=== PATIENT | female | born 1950 | race Two or more races ===

== ENCOUNTER 2024-06-12 22:54 | Inpatient (IN) | payer OTHER, MEDICAID ==
[~2024-06-12] VITALS: Ht 160 cm; Wt 105.1 kg
[2024-06-13] VITALS (12 sets, daily range): BP systolic 81–136; BP diastolic 42–70; PULSE 72–111; RESP 14–22; TEMP 98–99.3; O2SAT 85–100
[2024-06-13] MEDS ORDERED: ONDANSETRON HCL 4 MG/2 ML VIAL IV PRN (03:30)
[2024-06-13] MEDS ORDERED: NITROGLYCERIN 0.4 MG SL TAB SL PRN (03:30)
[2024-06-13] MEDS ORDERED: MORPHINE SULFATE INJ 2 MG/ml SYRG IV PRN ×2 (03:30)
[2024-06-13] MEDS ORDERED: ATOR20TA PO (04:00)
[2024-06-13] MEDS ORDERED: SEMA4INJ SC (04:00)
[2024-06-13] MEDS ORDERED: PANT40TA2 PO (04:00)
[2024-06-13] MEDS ORDERED: FOLI-119 PO (04:00)
[2024-06-13] MEDS ORDERED: ASPI-543 PO (04:00)
[2024-06-13] MEDS ORDERED: AMIT25TA20 PO (04:00)
[2024-06-13] MEDS ORDERED: LEVO-177 GT (04:00)
[2024-06-13] MEDS ORDERED: CITA10TA6 PO (04:00)
[2024-06-13] MEDS ORDERED: MAGN400C4 PO (04:00)
[2024-06-13 04:18] LABS: Basophils # (auto) 0 10 ^3/uL (0-0.2); Basophils % (auto) 0.4 % (0.0-2.0); Eosinophils # (auto) 0.2 10 ^3/uL (0-0.8); Lymphocytes # (auto) 0.7 10 ^3/uL (0.4-5.4); Mean Corpuscular Volume 103.7 fL (80.0-100.0); Monocytes # (auto) 0.5 10 ^3/uL (0-1.3)
[2024-06-13 04:20] LABS: Eosinophils % (auto) 1.8 % (0.0-7.0); Hematocrit 36.2 % (36.0-46.0); Hemoglobin 12.4 g/dL (12.2-16.2); Lymphocytes % (auto) 6.6 % (10.0-50.0); Mean Corpuscular Hemoglobin 35.4 pg (28.0-32.0); Mean Corpuscular Hgb Conc. 34.2 g/dL (32.0-36.0); Monocytes % (auto) 4.8 % (0.0-12.0); Neutrophils % (auto) 86.4 % (37.0-80.0); Platelet Count (auto) 226 10^3/uL (140-450); Red Blood Cells 3.49 10^6/uL (4.0-5.20); Red Cell Distribution Width 16.8 % (11.8-14.3); White Blood Cell 10.4 10^3/uL (4.4-10.8)
[2024-06-13 04:30] LABS: Alanine Aminotransferase 15 U/L (7-40); Albumin 3.1 g/dL (3.2-4.8); Alkaline Phosphatase 82 U/L (46-116); Anion Gap 4 (5-15); Aspartate Aminotransferase 16 U/L (13-40); BUN/Creatinine Ratio 12.8 (10.0-20.0); Blood Urea Nitrogen 14 mg/dL (9-23); Calcium 8.2 mg/dL (8.7-10.4); Carbon Dioxide 28 mmol/L (20-30); Chloride 105 mmol/L (98-107); Glucose 105 mg/dL (74-106); Sodium 137 mmol/L (136-145)
[2024-06-13 04:31] LABS: Bilirubin, Total 0.8 mg/dL (0.2-1.0); Total Protein 5.3 g/dL (5.7-8.2)
[2024-06-13] MEDS: SODIUM CHLORIDE 0.9% 1,000 ML IV SCH (04:50)
[2024-06-13] MEDS: metroNIDAZOLE 500MG/100ML 100 ML IV SCH (05:38)
[2024-06-13] MEDS: cefTRIAXone 1GM/50ML D5W 50 ML IV SCH (11:48)
[2024-06-13] MEDS: MAGNESIUM SULFATE 1GM/100ML 100 ML IV ONE (11:49)
[2024-06-13] MEDS ORDERED: PRED20TA2 PO (13:22)
[2024-06-13] MEDS ORDERED: IVAB1.7T PO (13:22)
[2024-06-13] MEDS ORDERED: PILO7.5T3 PO (13:22)
[2024-06-13] MEDS ORDERED: MONT-8 OR (13:22)
[2024-06-13 13:46] LABS: Urine Bacteria None Seen /hpf (None Seen)
[2024-06-13 13:57] LABS: Urine Blood Negative /uL (Negative); Urine Clarity Turbid (Clear); Urine Color Yellow (Yellow); Urine Mucus FEW (None Seen); Urine Protein, UAD 1+ (Negative); Urine Specific Gravity 1.028 (1.001-1.035); Urine Urobilinogen 2 mg/dL (Negative); Urine WBC 48 /hpf (0 - 5); Urine pH 5.5 (5.0-9.0)
[2024-06-13] MEDS ORDERED: BUDE1AER4 INH (14:15)
[2024-06-13] MEDS ORDERED: DEXTROSE (50%) 50ML SYRG IV PRN (18:45)
[2024-06-13] MEDS: MORPHINE SULFATE INJ 2 MG/ml SYRG IV PRN (20:02)
[2024-06-13 20:43] LABS: Folate (Folic Acid) 17.88 ng/mL (>5.38)
[2024-06-13] MEDS: ENOXAPARIN SOD 30 MG/0.3 ML SYRINGE SC SCH (21:38)
[2024-06-13] MEDS: FLORASTOR (S. BOULARDII) 250 MG CAP PO SCH (21:40)
[2024-06-13] MEDS: ATORVASTATIN 20 MG TAB PO SCH (21:40)
[2024-06-13 23:42] LABS: COVID19 ANTIGEN SOFIA FIA NEGATIVE (NEGATIVE)
[2024-06-13] MEDS: ACCU-CHEK COMFORT CURVE STRIP VI SCH (23:49)
[2024-06-13] MEDS: InsuLIN REG 1unit/0.01ml Soln (100units/ml) SC SCH (23:50)
[2024-06-14] VITALS (17 sets, daily range): BP systolic 77–148; BP diastolic 38–87; PULSE 97–116; RESP 16–22; TEMP 97.5–98.9; O2SAT 85–99
[2024-06-14] MEDS: LEVOTHYROXINE SODIUM 25 MCG TAB PO SCH (05:57)
[2024-06-14] MEDS ORDERED: LEVOTHYROXINE SODIUM 88 MCG TAB PO SCH (06:00)
[2024-06-14 06:17] LABS: Basophils # (auto) 0 10 ^3/uL (0-0.2); Basophils % (auto) 0.6 % (0.0-2.0); Eosinophils # (auto) 0.2 10 ^3/uL (0-0.8); Eosinophils % (auto) 2.7 % (0.0-7.0); Hematocrit 34.3 % (36.0-46.0); Hemoglobin 11.4 g/dL (12.2-16.2); Lymphocytes # (auto) 0.6 10 ^3/uL (0.4-5.4); Lymphocytes % (auto) 7.9 % (10.0-50.0); Mean Corpuscular Hemoglobin 34.9 pg (28.0-32.0); Mean Corpuscular Hgb Conc. 33.4 g/dL (32.0-36.0); Mean Corpuscular Volume 104.7 fL (80.0-100.0); Monocytes # (auto) 0.3 10 ^3/uL (0-1.3); Monocytes % (auto) 3.9 % (0.0-12.0); Neutrophils # (auto) 6.6 10 ^3/uL (1.6-8.6); Neutrophils % (auto) 84.9 % (37.0-80.0); Platelet Count (auto) 220 10^3/uL (140-450); Red Blood Cells 3.27 10^6/uL (4.0-5.20); Red Cell Distribution Width 17.1 % (11.8-14.3); White Blood Cell 7.8 10^3/uL (4.4-10.8)
[2024-06-14 06:22] LABS: Chloride 107 mmol/L (98-107); Potassium 3.9 mmol/L (3.5-5.1); Sodium 139 mmol/L (136-145)
[2024-06-14 06:23] LABS: Anion Gap 2 (5-15); Calcium 8.2 mg/dL (8.7-10.4); Carbon Dioxide 30 mmol/L (20-30)
[2024-06-14 06:28] LABS: BUN/Creatinine Ratio 15.9 (10.0-20.0); Blood Urea Nitrogen 14 mg/dL (9-23); Glucose 90 mg/dL (74-106)
[2024-06-14 06:29] LABS: Magnesium 1.9 mg/dL (1.6-2.6)
[2024-06-14 09:14] LABS: Free T3 2.37 pg/mL (2.3-4.2); Free T4 (Free Thyroxine) 1.28 ng/dL (0.89-1.76)
[2024-06-14] MEDS: D5W 5% 1,000 ML IV SCH (09:23)
[2024-06-14] MEDS: LEVALBUTEROL HCL 1.25 MG/3 ML NEB NEB SCH (12:18)
[2024-06-14] MEDS: CITALOPRAM HYDROBR 20 MG TAB PO ONE (15:44)
[2024-06-14] MEDS: DOXYCYCLINE 100MG/250ML 250 ML IV ONE (15:45)
[2024-06-14] MEDS: IPRATROPIUM BROM 0.5 MG/2.5ML INH SOL NEB PRN (19:12)
[2024-06-14] MEDS: DOXYCYCLINE 100 MG TAB/CAP PO SCH (21:50)
[2024-06-15] VITALS (13 sets, daily range): BP systolic 123–142; BP diastolic 60–79; PULSE 58–111; RESP 16–22; TEMP 37; O2SAT 90–100
[2024-06-15 04:45] LABS: Basophils # (auto) 0 10 ^3/uL (0-0.2); Lymphocytes # (auto) 0.6 10 ^3/uL (0.4-5.4); Mean Corpuscular Hemoglobin 34.7 pg (28.0-32.0); Mean Corpuscular Hgb Conc. 33.7 g/dL (32.0-36.0); Mean Corpuscular Volume 102.9 fL (80.0-100.0); Monocytes # (auto) 0.4 10 ^3/uL (0-1.3)
[2024-06-15 04:47] LABS: Basophils % (auto) 0.4 % (0.0-2.0); Eosinophils # (auto) 0.2 10 ^3/uL (0-0.8); Eosinophils % (auto) 3.4 % (0.0-7.0); Hematocrit 32.7 % (36.0-46.0); Lymphocytes % (auto) 8.5 % (10.0-50.0); Neutrophils # (auto) 5.3 10 ^3/uL (1.6-8.6); Neutrophils % (auto) 81.7 % (37.0-80.0); Nucleated Red Blood Cells % 0.3 %; Platelet Count (auto) 215 10^3/uL (140-450); Red Blood Cells 3.18 10^6/uL (4.0-5.20); Red Cell Distribution Width 16.7 % (11.8-14.3); White Blood Cell 6.5 10^3/uL (4.4-10.8)
[2024-06-15 04:56] LABS: Chloride 104 mmol/L (98-107); Potassium 3.4 mmol/L (3.5-5.1); Sodium 139 mmol/L (136-145)
[2024-06-15 04:57] LABS: Anion Gap 6 (5-15); Calcium 8.2 mg/dL (8.7-10.4); Carbon Dioxide 29 mmol/L (20-30)
[2024-06-15 05:02] LABS: BUN/Creatinine Ratio 9.4 (10.0-20.0); Blood Urea Nitrogen 8 mg/dL (9-23); Glucose 107 mg/dL (74-106)
[2024-06-15 05:03] LABS: Magnesium 1.8 mg/dL (1.6-2.6)
[2024-06-15 05:14] LABS: Rapid Influenza A Negative (Negative); Rapid Influenza B Negative (Negative)
[2024-06-15] MEDS ORDERED: MAGNESIUM SULFATE 1GM/100ML 100 ML IV ONE (08:45)
[2024-06-15] MEDS: CITALOPRAM HYDROBR 20 MG TAB PO SCH (09:01)
[2024-06-15] MEDS: POTASSIUM CHL 20 Meq TABLET PO ONE (09:11)
[2024-06-15 09:41] LABS: Base Excess 0.1 mmol/L (-2.0-3.0)
[2024-06-15] MEDS: POTASSIUM CHLORIDE 40 MEQ, LIDOCAINE 1% (LOCAL ANESTH.) 4 ML in SODIUM CHL 0.9% 250 ML IV ONE (12:08)
[2024-06-15] MEDS ORDERED: IOHEXOL 300 MG/ML 100ML BOTTLE IJ ONE (12:19)
[2024-06-15] MEDS ORDERED: LEVO500T91 PO (14:36)
[2024-06-15] MEDS ORDERED: SACC250C PO (14:36)
[2024-06-15] MEDS ORDERED: METR-344 PO (14:36)
[2024-06-15] MEDS ORDERED: ALBU1.258 IN (14:36)
[2024-06-15] MEDS ORDERED: FUROSEMIDE 40 MG/4 ML VIAL IV ONE (14:45)
[2024-06-15] MEDS ORDERED: DEXTROSE (50%) 50ML SYRG IV PRN (14:45)
[2024-06-15] MEDS ORDERED: LISINOPRIL 5 MG TAB PO ONE (14:45)
[2024-06-15] MEDS: MAGNESIUM SULFATE 1GM/100ML 100 ML IV ONE (16:26)
[2024-06-15] MEDS: ACCU-CHEK COMFORT CURVE STRIP VI SCH (17:00)
[2024-06-15] MEDS: InsuLIN REG 1unit/0.01ml Soln (100units/ml) SC SCH (17:00)
[2024-06-16] MEDS ORDERED: LISINOPRIL 5 MG TAB PO SCH (10:00)
== END 2024-06-15 20:00 | disposition home or self-care (01) | DRG 391 ==
LOC: UNDOADMIN 06-13 01:39 → CENTRAL 06-13 01:39 → TELE-CENTR 06-13 03:24
PROVIDERS: ADMIT Internal Medicine; ATTEND Internal Medicine
DX: K57.32 Diverticulitis of large intestine without perforation or abscess without bleeding (principal); I50.23 Acute on chronic systolic (congestive) heart failure; J96.01 Acute respiratory failure with hypoxia; Z68.41 Body mass index [BMI] 40.0-44.9, adult; E86.0 Dehydration; Z20.822 Contact with and (suspected) exposure to COVID-19; E11.9 Type 2 diabetes mellitus without complications; I11.0 Hypertensive heart disease with heart failure; E78.5 Hyperlipidemia, unspecified; E03.9 Hypothyroidism, unspecified; K52.9 Noninfective gastroenteritis and colitis, unspecified; E66.01 Morbid (severe) obesity due to excess calories; I48.0 Paroxysmal atrial fibrillation; M34.89 Other systemic sclerosis; Z79.899 Other long term (current) drug therapy; Z79.4 Long term (current) use of insulin
CPT/HCPCS: 36415; 36600; 70450; 71045; 71260; 74177; 80048; 80053; 81001; 82607; 82746; 82805; 82962; 83036; 83735; 83880; 84439; 84443; 84481; 84484; 85025; 87040; 87081; 87086; 87426; 87804; 93306; 93886; 94640; 95819; G0378; J2001; J3490; J7042

== ENCOUNTER 2024-08-23 07:01 | Day surgery (SDC) | payer OTHER, MEDICAID ==
[2024-08-23] VITALS (8 sets, daily range): BP systolic 101–127; BP diastolic 51–77; PULSE 77–88; RESP 12–20; TEMP 97.9; O2SAT 95–100
[~2024-08-23] VITALS: Ht 160 cm; Wt 98.9 kg
[~2024-08-23 07:01] MED LIST: ALBU1.258 IN; AMIT25TA20 PO; ASPI-543 PO; ATOR20TA PO; BUDE1AER4 INH; CITA10TA6 PO; FOLI-119 PO; IVAB1.7T PO; LEVO-177 GT; METH2.5T PO; PANT40TA2 PO; PILO5TAB10 PO; PILO7.5T3 PO; SEMA4INJ SC
[2024-08-23] MEDS ORDERED: IODIXANOL 320MG/ML 100ML BTL IV ONE (08:47)
[2024-08-23] MEDS ORDERED: fentaNYL CITRATE 100 MCG/2 ML VL ONE (08:59)
[2024-08-23] MEDS ORDERED: LIDOCAINE 2%HCL (LOCAL ANESTH.) INJ 20ML MDV ONE (08:59)
[2024-08-23] MEDS ORDERED: MIDAZOLAM HCL 2MG/2ML 2ml VIAL (1mg/ml) ONE (08:59)
[2024-08-23] MEDS ORDERED: ANGIOMAX 250 MG VIAL IV ONE (09:05)
[2024-08-23] MEDS ORDERED: SODIUM CHL 0.9% 0 ML ONE (09:05)
--- NOTE | 2024-08-23 09:29 | DVHOP2 ---
Operative Report - 2 Report Details Date: 08/23/24 Preop Diagnosis: Cardiomyopathy. Pulmonary hypertension. Postop Diagnosis: s/p [facility] Surgeon: Jacklyn Monson MD Anesthesiologist: Conscious sedation Anesthesia: Mac, Local Consent: The patient was informed of the risks and benefits of the procedure. These include but are not limited to complications of anesthesia, postoperative infection, incomplete relief of symptoms, recurrence of symptoms, damage to blood vessels, nerves and tendons, deep venous thrombosis, pulmonary embolism and possible need for repeat surgery in the future. Complications: No complications Estimated Blood Loss: 5 cc Findings: Mild pulmonary hypertension, cardiomyopathy Indications for Surgery: Cardiomyopathy. Congestive heart failure Name of Procedure Performed Right and left heart catheterization bilateral cine coronary angiography. Left ventriculography. Procedure Details Procedure Details: procedure: Prior local anesthesia with 2% lidocaine to the right groin and full informed consent obtained the patient is prepped and draped in usual f ashion followed by placement of a six [place] sheath into the femoral vein and a six [place] sheath into the femoral artery. Through the femoral venous sheath a [place] catheter was advanced into the right atrium and ventricle pulmonary artery and capillary wedge pressure positions were pressures were obtained and recorded. Cardiac outputs were then obtained with the thermodilution technique in triplicate. O2 saturations were not obtained. Pressures were obtained. A six [place] sheath was then placed into the femoral artery and Ronni catheters were used to cannulate both right and left coronary ostium and a six [place] pigtail catheter was used for ventriculography. Patient tolerated the procedure well there no complications. Hemodynamics: Right atrial pressure was eight. Right ventricular pressure was 33/8. Pulmonary pressure was 31/22. Capillary wedge pressure was 10. Left ventricular end-diastolic pressure was 10. Left ventricular systolic was 144/10. Aortic her blood pressure was 130/90. There was no gradient across the aortic valve on pullback. There was no gradient across the mitral valve. Cardiac output by the thermodilution technique was 5.37. O2 saturations were not obtained. Coronary anatomy the RCA is a large vessel it is normal in its proximal and midportion. It is nondominant. Large acute marginal branches and a small distal RCA. The left coronary system is dominant. Left main is large and normal. Left anterior descending is a large vessel it is normal in its proximal mid and distal segments. with diagonals and septals are within normal limits. The circumflex is large vessel. It is normal in its proximal mid and distal segments. The PT posterolateral branches are normal. Ventriculography in the SILVA projection shows an EF of about 35% with global hypokinesis. Impression mildly elevated left ventricular end-diastolic pressure at rest. Mil d pulmonary hypertension. Decreased left ventricular ejection fraction. Cardiomyopathy noted. No significant coronary artery disease. Recommendations: Initiate afterload reduction Entresto. Risk factor modification. Diuretic therapy as needed. If no improvement in 8-12 weeks consider ICD. Condition Fair Disposition Home Date of Service: Aug 23, 2024 Billing Provider: JACKLYN MONSON Sr., MD Cardiology Common Codes: 39795-FXCFLGV INP/OBS CARE (High) Cardiology Procedure Codes: 13784-S HEART CATH UMM 02SAT, 63604-RUQK HEART CATH W/INTRA INJ, 53665-Z/R & L HEART CATH FOR LVG JACKLYN MONSON Sr., MD Aug 23, 2024 09:29
== END 2024-08-23 11:25 | disposition home or self-care (01) ==
LOC: CATH 07:01
PROVIDERS: ATTEND Internal Medicine
DX: I27.20 Pulmonary hypertension, unspecified (principal); I50.9 Heart failure, unspecified; I42.9 Cardiomyopathy, unspecified; R07.9 Chest pain, unspecified
CPT/HCPCS: 93460; C1894; J1644; J2250; J3010; Q9967; 99152; 99153

== ENCOUNTER → 2025-03-30 | Day surgery (SDC) | payer OTHER, MEDICAID ==
[2025-03-22 15:33] LABS: Basophils # (auto) 0 10 ^3/uL (0-0.2); Basophils % (auto) 0.7 % (0.0-2.0); Eosinophils # (auto) 0.2 10 ^3/uL (0-0.8); Eosinophils % (auto) 3.2 % (0.0-7.0); Hematocrit 38.6 % (36.0-46.0); Hemoglobin 12.9 g/dL (12.2-16.2); Lymphocytes # (auto) 1.6 10 ^3/uL (0.4-5.4); Lymphocytes % (auto) 31.1 % (10.0-50.0); Mean Corpuscular Hemoglobin 32.9 pg (28.0-32.0); Mean Corpuscular Hgb Conc. 33.4 g/dL (32.0-36.0); Mean Corpuscular Volume 98.5 fL (80.0-100.0); Monocytes # (auto) 0.4 10 ^3/uL (0-1.3); Monocytes % (auto) 7.1 % (0.0-12.0); Neutrophils # (auto) 2.9 10 ^3/uL (1.6-8.6); Neutrophils % (auto) 57.9 % (37.0-80.0); Nucleated Red Blood Cells % 0.1 %; Platelet Count (auto) 252 10^3/uL (140-450); Red Blood Cells 3.92 10^6/uL (4.0-5.20); Red Cell Distribution Width 14.1 % (11.8-14.3); White Blood Cell 5.1 10^3/uL (4.4-10.8)
[2025-03-22 15:49] LABS: INR 0.98 (0.9-1.15); Partial Thromboplastin Time 30.1 SEC (24.5-34.5); Prothrombin Time 10.4 sec (9.3-11.8)
[2025-03-22 15:51] LABS: Alanine Aminotransferase 16 U/L (7-40); Albumin 4.2 g/dL (3.2-4.8); Alkaline Phosphatase 94 U/L (46-116); Anion Gap 5 (5-15); Aspartate Aminotransferase 18 U/L (13-40); BUN/Creatinine Ratio 19.3 (10.0-20.0); Bilirubin, Total 0.4 mg/dL (0.2-1.0); Blood Urea Nitrogen 21 mg/dL (9-23); Calcium 10.1 mg/dL (8.7-10.4); Carbon Dioxide 27 mmol/L (20-31); Glucose 83 mg/dL (74-106); Potassium 4.2 mmol/L (3.5-5.1); Sodium 140 mmol/L (136-145); Total Protein 7.1 g/dL (5.7-8.2)
[2025-03-22 15:55] LABS: Chloride 108 mmol/L (98-107)
[~2025-03-30] VITALS: Ht 160 cm; Wt 98.9 kg
[~2025-03-30] MED LIST changes: -IVAB1.7T PO; -PILO5TAB10 PO; -PILO7.5T3 PO; +SACU1CAP2 PO; +SODIUM CHLORIDE LOCK 10 ML ONE
[2025-03-30 09:35] VITALS: PULSE 78; RESP 12; O2SAT 96
[2025-03-30] MEDS: MIDAZOLAM HCL 5 MG/ML-1ML VIAL ONE (09:52)
[2025-03-30] MEDS: LIDOCAINE VISCOUS 2% 15ML UD ONE (09:52)
[2025-03-30] MEDS: fentaNYL CITRATE 100 MCG/2 ML VL ONE (09:52)
[2025-03-30] MEDS: diphenhdrAMINE HCL 50 MG/1 ML VL ONE (09:52)
[2025-03-30 10:08] VITALS: TEMP 97.1; O2SAT 99
--- NOTE | 2025-03-30 10:32 | DVHOP2 ---
Operative Report DATE OF OPERATION: 03/30/25 PROCEDURE: Upper Endoscopy with biopsy. PREOPERATIVE INDICATION: The patient is a 74 -year-old female undergoing endoscopy for chronic GERD POSTOPERATIVE DIAGNOSES: 1. Mild antral gastritis 2. Minimal gastroparesis 3. Otherwise normal examination up to the 2nd and 3rd part of the duodenum PROCEDURE PERFORMED BY: Venu Choi GI NURSE: Eri SCOPE: Olympus videoendoscope. ASA CLASS: 2 PREOPERATIVE MEDICATIONS: Versed 3 mg, Fentanyl 75 mcg, Benadryl 50 mg I administered moderate sedation throughout this _8_ minutes procedure. An independent trained observer pushed medications at my direction, and monitored the patient's level of consciousness and physiological status throughout. PROCEDURE IN DETAIL: After obtaining an informed consent, the patient was placed on left lateral decubitus position. The patient was then sedated with the above medications. A bite block was placed between her teeth. The endoscope was then passed through the oropharynx, into the esophagus, and through the stomach and pylorus up to the second and third part of the duodenum. The endoscope was then withdrawn. Second and 3rd part of the duodenum and the duodenal bulb were normal. Duodenal biopsies were obtained. The pre-pyloric area and antrum showed mild gastritis. Gastric biopsies were obtained. On retroflexion and straight on view the patient had a small amount of residual food in the stomach. The endoscope was then withdrawn into distal esophagus where there was no significant hiatal hernia and no significant esophagitis There was slightly irregular squamocolumnar junction and GE junction biopsies were obtained. The patient tolerated the procedure well without difficulty. COMPLICATIONS : None SPECIMENS: Duodenal Biopsies Gastric biopsies GE junction biopsies DISPOSITION: Stable D/C to home PLAN: 1. Await for biopsy result 2. Pantoprazole 40 mg p.o. daily 3. Resume GI soft diet advance as tolerated 4. Outpatient follow up with me in 4-6 weeks to review results and discuss fu rther management VENU CHOI MD Mar 30, 2025 10:32
[2025-03-30 10:38] VITALS: BP 102/47; PULSE 67; RESP 14; O2SAT 98
== END | disposition home or self-care (01) ==
LOC: GI 07:49
PROVIDERS: ATTEND Internal Medicine Gastroenterology
DX: K29.50 Unspecified chronic gastritis without bleeding (principal); K21.00 Gastro-esophageal reflux disease with esophagitis, without bleeding; K31.84 Gastroparesis; Z98.890 Other specified postprocedural states; Z90.49 Acquired absence of other specified parts of digestive tract; I11.0 Hypertensive heart disease with heart failure; I50.9 Heart failure, unspecified; E03.9 Hypothyroidism, unspecified; E11.9 Type 2 diabetes mellitus without complications
CPT/HCPCS: 36415; 43239; 80053; 82962; 85025; 85610; 85730; 88305; 88312; 88342; J1200; J2250; J3010; J7030

== ENCOUNTER 2025-09-07 11:16 | Outpatient (CLI) | payer OTHER, MEDICAID ==
[~2025-09-07 11:16] MED LIST changes: -SODIUM CHLORIDE LOCK 10 ML ONE
--- NOTE | 2025-09-07 14:26 | DVHSR ---
APPROVED REPORT EXAM: Two-dimensional and M-mode echocardiogram with Doppler and color Doppler. INDICATION Palpitations DIMENSIONS LVDd (3.8-5.7cm) LA (2D) 3.6 (1.9-4.0cm) Aortic Root (2.0-3.7cm) EF (%) 46.0 (55-70%) Rt. Atrium (1.9-4.0cm) Asc. Aorta cm Mitral Valve Mitral Mitral Stenosis E wave 0.94m/s MV Mean GR. mmHg A wave 1.16m/s MV Peak GR. 55mmHg E/A ratio 0.8 2D MVA cm2 DECEL Time 310ms PRESS 1/2 Time ms Aortic Valve Aortic Valve Aortic Stenosis V1 0.93m/s AO Mean GR. 4mmHg V2 1.23m/s AO Peak GR. 6mmHg LVOT Diameter 2.2 (1.8-2.4cm) Doppler LISA 2.87cm2 Pulmonic Valve V2 0.72m/s Tricuspid Valve TR Velocity 2.75m/s RVSP 33mmHg Other Information Technically limited study due to body habitus. Conclusion Sinus rhythm. Off axis views. Left atrial and aortic root enlargement. Mild aortic sclerosis. Mild mitral annular calcification. Left ventricular function is diminished. EF is about 40% with global hypokinesis especially of the anterior wall. Normal RV function. Mild TR. No pericardial effusion masses or vegetations.
== END 2025-09-07 17:00 | disposition home or self-care (01) ==
LOC: XYW 11:16
PROVIDERS: ATTEND Internal Medicine
DX: I08.0 Rheumatic disorders of both mitral and aortic valves (principal); I51.7 Cardiomegaly; R00.2 Palpitations
CPT/HCPCS: 93306